=== PATIENT | female | born 1955 | race Caucasian/White ===

== ENCOUNTER 2022-05-30 09:28 | Outpatient (CLI) | payer MEDICARE, BC, SELFPAY ==
[2022-05-30 13:15] LABS: Chloride* 100 mmol/L (96-114); Potassium* 4.8 mmol/L (3.6-5.1); Sodium* 139 mmol/L (135-149)
[2022-05-30 13:17] LABS: Cholesterol* 297 mg/dL (90-199); Creatinine* 0.8 mg/dL (0.5-1.5); Estimated Glomerular Filt Rate 80 ml/min
[2022-05-30 13:18] LABS: Blood Urea Nitrogen* 20 mg/dL (7-30); Calcium* 10.2 mg/dL (8.4-10.6); Carbon Dioxide* 29 mmol/L (20-32); Glucose* 98 mg/dL (60-115); HDL Cholesterol* 63 mg/dL (>=50); LDL Cholesterol Calculated 203 mg/dL (<100); Triglycerides* 153 mg/dL (40-149)
[2022-05-30 13:35] LABS: Vitamin D 25 Hydroxy* 32 ng/mL (30-80)
== END 2022-05-30 09:29 | disposition home or self-care (01) ==
PROVIDERS: PCP Internal Medicine; Visit Provider Internal Medicine
DX: E78.5 Hyperlipidemia, unspecified (principal); E03.9 Hypothyroidism, unspecified; D47.3 Essential (hemorrhagic) thrombocythemia; I10 Essential (primary) hypertension; M81.0 Age-related osteoporosis without current pathological fracture; E66.9 Obesity, unspecified
CPT/HCPCS: 80048; 80061; 82306; 84443

== ENCOUNTER 2022-07-06 12:42 | Outpatient (CLI) | payer MEDICARE, BC, SELFPAY ==
--- NOTE | 2022-07-06 14:00 | CRLHL7_ITS ---
For Patients: As a result of the Century Cures Act, medical imaging exams and procedure reports are released immediately into your electronic medical record. You may view this report before your referring provider. If you have questions, please contact your health care provider. DXA BONE MINERAL DENSITY STUDY Current height (in): 62.0. Weight (lb): 180.0. Menopause age: 46. Ethnicity: White. Reason for exam: Osteoporosis. 1. Have you had a previous hip or vertebral fracture? No. 2. Have you had any fractures during your adult life which did not result from significant trauma (e.g., auto accident)? No. 3. Did either of your parents have a hip fracture? No. 4. Do you smoke? No. 5. Have you ever taken Glucocorticoids? No. 6. Do you have rheumatoid arthritis? No. 7. Do you have secondary osteoporosis? No. 8. Do you drink 3 or more alcoholic drinks per day? No. 9. Are you being treated for osteoporosis? Yes. 10. Have you ever taken any of the following medications: Actonel, Evista, Fosamax, Miacalcin, Reclast, Boniva, Forteo, HRT (i.e. estrogen/hormone therapy), Protelos, Prolia, Vitamin D, Calcium, other ??? please specify. ANSWER: Yes, Reclast, vitamin D, calcium. 11. Do you have any of the following medical conditions: Anorexia or bulimia, asthma or emphysema, end stage renal disease, hyperparathyroidism, any seizure disorders, cancer, inflammatory bowel diseases, hysterectomy, other ??? please specify. ANSWER: Yes, asthma or emphysema, hyperparathyroidism, hypertension, any seizure disorder, hysterectomy. 12. What was your maximum height (inches)? 62. 13. Do you perform weight bearing exercise regularly? No. 14. Do you regularly consume dairy products? Yes. 15. Do you drink caffeinated beverages? No. If female: 16. At what age did your period start? 11. 17. Are you premenopausal? No. 18. How many full term pregnancies have you had? 3. 19. Have you ever missed your period for more than 6 months in a row (not including or menopause)? No. TECHNIQUE: Bone mineral density study was performed using the Formisimo. FINDINGS: The results of the study expressed as bone mineral density (BMD) are as follows: Lumbar spine L1 to L4: BMD: 0.860 g/cm2. T-score: -1.7. Z-score: 0.3. Neck Left: BMD: 0.653 g/cm2. T-score: -1.8. Z-score: -0.0. Right: BMD: 0.670 g/cm2. T-score: -1.6. Z-score: 0.1. Total Left: BMD: 0.837 g/cm2. T-score: -0.9. Z-score: 0.6. Right: BMD: 0.857 g/cm2. T-score: -0.7. Z-score: 0.7. IMPRESSION: Osteopenia. *Comparison exams done prior to 02/2020 were performed on different unit, Virtustream. COMPARISON: Compared with scan of 02/01/2017, the bone mineral density has increased by 2.1 percent at the spine and increased by 9.0 percent at the hip. Wilman Salvador M.D. Diagnostic Radiologist [email or web address] Transcribed: 8:58 a.m. DW/Dictated by: Wilman Salvador MD @ 07/07/2022 7:57:00 AM (Electronically Signed)
== END 2022-07-06 12:43 | disposition home or self-care (01) ==
LOC: RAD 12:43
PROVIDERS: PCP Internal Medicine; Visit Provider Internal Medicine
DX: M81.0 Age-related osteoporosis without current pathological fracture (principal); M85.89 Other specified disorders of bone density and structure, multiple sites; R01.1 Cardiac murmur, unspecified
CPT/HCPCS: 77080; 93306

== ENCOUNTER 2022-11-13 10:19 | Outpatient (CLI) | payer MEDICARE, BC, SELFPAY | END 2022-11-13 10:20 | disposition home or self-care (01) | LOC: NFLDREF 11-17 10:04 | PROVIDERS: PCP Internal Medicine; Referring Provider Internal Medicine; Visit Provider Internal Medicine | DX: E78.5 Hyperlipidemia, unspecified (principal) | CPT/HCPCS: 80061 ==

== ENCOUNTER 2022-12-07 15:36 | Outpatient (CLI) | payer MEDICARE, BC, SELFPAY | END 2022-12-07 15:37 | disposition home or self-care (01) | LOC: NFLDREF 15:37 | PROVIDERS: PCP Internal Medicine; Visit Provider Internal Medicine | DX: E03.9 Hypothyroidism, unspecified (principal); E78.5 Hyperlipidemia, unspecified | CPT/HCPCS: 84443 ==

== ENCOUNTER 2023-06-05 09:25 | Outpatient (CLI) | payer MEDICARE, BC, SELFPAY ==
--- OUTSIDE RECORDS SUMMARY | 2023-06-09 11:33 | XMS_ITS | Continuity of Care Document ---
Author Name Unknown Organization [facility] Address [address] [place] [address] Phone Care Team Providers Care Manager Administrative Name Role Phone Milena Potts MD Unavailable Unavailable Results Test Name Date and Time Measure Units Reference Range Abnormal Flag Status Commen ts Panel Description: CPK Final CK 11:26:00 63 U/L 26-140 Final Advance Directives Directive Yes / No Effective Date File Name No Information Encounters Encounter Description Practice Location Reason(s) For Visit Diagnoses Date Provider Providers Copied on Encounter [facility], [address], [place], [address], [place] tel:[phone] No Information 3 Katlyn Abbott. [facility] [address], [place], [address], [place]. tel:[phone] Family History Family Member Type Diagnosis Age At Onset No Information Payers Payer name Insurance type Covered republican ID Authoriza tion(s) No Information Social History Type Description Quantity Date Captured Comments Sex Female Smoking Status No Information Chief Complaint And Reason For Visit No Information Reason For Referral Reason For Referral No Information History Of Present Illness Encounter Date Complaint History Of Prese nt Illness No Information Functional Status Date Functional Assessmen t No Information Instructions Date Instruction Additional Infor mation No Information Assessments Type Assessment Date No Information Patient Care Teams Name Effective Dates (start - stop) Status Members No Information
== END 2023-06-05 09:26 | disposition home or self-care (01) ==
LOC: NFLDREF 06-09 11:32
PROVIDERS: PCP Internal Medicine; Referring Provider Internal Medicine; Visit Provider Internal Medicine
DX: I10 Essential (primary) hypertension (principal); E03.9 Hypothyroidism, unspecified; E78.5 Hyperlipidemia, unspecified; M81.0 Age-related osteoporosis without current pathological fracture
CPT/HCPCS: 80048; 80061; 82306; 84443

== ENCOUNTER 2023-07-24 10:15 | Outpatient (CLI) | payer MEDICARE, BC, SELFPAY ==
--- OUTSIDE RECORDS SUMMARY | 2023-07-24 10:18 | XMS_ITS | Continuity of Care Document ---
Author Name Unknown Organization [facility] Address [address] [place] [address] Phone Care Team Providers Care Dust Operator Name Role Phone Milena Potts MD Unavailable [...] [facility], [address], [place], [address], [place] tel:[phone] No Information 3 Katlyn Abbott. [facility] [address], [place], [address], [place]. tel:[phone] Family History Family Member Type Diagnosis Age [...]
--- NOTE | 2023-07-24 11:11 | W.ANESCHARGE ---
Anesthesia Charges Start Date/Time Anesthesia Start Date: 07/24/23 Anesthesia Start Time: 10:45 Stop Date/Time Anesthesia Stop Date: 07/24/23 Anesthesia Stop Time: 11:09
--- NOTE | 2023-07-24 11:39 | W.ANESCHARGE ---
Anesthesia Charges Start Date/Time Anesthesia Start Date: 07/24/23 Anesthesia Start Time: 10:45 Stop Date/Time Anesthesia Stop Date: 07/24/23 Anesthesia Stop Time: 11:09
== END 2023-07-24 10:16 | disposition home or self-care (01) ==
LOC: OP CLINIC 10:16
PROVIDERS: PCP Internal Medicine; Visit Provider Surgery
DX: Z12.11 Encounter for screening for malignant neoplasm of colon (principal); Z83.719 Family history of colon polyps, unspecified
CPT/HCPCS: 00811; 00812; 45378; J2704

== ENCOUNTER 2024-07-17 08:52 | Outpatient (CLI) | payer MEDICARE, BC, SELFPAY ==
--- OUTSIDE RECORDS SUMMARY | 2024-07-17 14:39 | XMS_ITS | Continuity of Care Document ---
Author Organization [facility] Address [address] [place] [address] Phone Care Team Providers Care Editing Intern Name Role Phone Milena Potts MD Unavailable [...] [facility], [address], [place], [address], [place] tel:[phone] No Information 3 Katlyn Abbott. [facility] [address], [place], [address], [place]. tel:[phone] Family History Family Member Type Diagnosis Age At Onset No Information Payers Payer name Insurance type Covered democrat ID Authoriza tion(s) No Information Social History [...]
--- OUTSIDE RECORDS SUMMARY | 2024-07-17 14:39 | XMS_ITS | Clinical Summary ---
Author Organization [facility] Address [address] [place] [address] Care Team Providers Care Three Knife Trimmer Name Role Phone Unavailable Primary Care Provider Unavailabl e Source Comments PLEASE NOTE, if this patient is a minor, it may be UNLAWFUL to discuss sensitive information that is contained in these records (such as FAMILY PLANNING, MENTAL HEALTH or SUBSTANCE ABUSE) with the minor patient's parent or other person without the patient's specific authorization.[facility] Social History Tobacco Use Types Packs/Day Years Used Date Smoking Tobacco: Never Assessed Social Connections Answer Date Recorded Social Connections and Isolation 0 12/18/2020 Financial Resource Strain Answer Date R ecorded Financial Resource Strain 0 2020 Stress Answer Date Recorded Stress 0 12/18/2020 Physical Activity Answer Date Recorded Physical Activity 0 12/18/2020 Food Insecurity Answer Date Recorded Food 0 12/18/2020 Transportation Needs Answer Date Record ed Transportation 0 12/18/2020 Housing Stability Answer Date Recorded Housing 0 12/18/2020 Safety and Environment Answer Date Luis Eduardo rded Safety 0 12/18/2020 Utilities Answer Date Recorded Utilities 0 12/18/2020 Employment Answer Date Recorded Employment 0 12/18/2020 Sex and Gender Information Value Date Recorded Sex Assigned at Not on file Gender Identity Female 04/15/2021 1:13 PM PDT Sexual Orientation Straight 04/15/2021 1: 13 PM PDT Plan of Treatment Not on file Insurance Payer Benefit Plan / Group Subscriber ID Effective Dates Phone Address Type MEDICARE - [place] [id number] 2018-Pres e nt [address] [place] [address] Medicare [place] [id number] 2018-Prese nt [address] [address] [place] [address] Indemnity
--- OUTSIDE RECORDS SUMMARY | 2024-07-17 14:39 | XMS_ITS | Clinical Summary ---
Author Organization [email or web address] Address [place], [place] [address] Care Team Providers Care Silverlight Developer Name Role Phone iMa Lugo MD Primary Care Provider [phone] Allergies Active Allergy Reactions Criticality Noted Date Comments Cats (Fur, Dander, Saliva) Shortness Of Breath 10/30/2008 Celery (Apium Graveolens) (Umbelliferae) Anaphylaxis High 10/30/2008 uncooked Ragweed Runny Nose 10/30/2008 Medications Medication Sig Dispensed Refills Start Date End Date Status COZAAR 100 MG TAB take 1 tablet (100 mg) by oral route once daily 0 05/18/2009 Active aspirin 81 mg tablet Take 1 tablet by mouth once daily with a meal. 0 10/11/2009 Active lisinopril (PRINIVIL; ZESTRIL) 20 mg tablet Take 1 tablet by mouth once daily. 0 01/18/2010 Active cholecalciferol (VITAMIN D) 1,000 unit capsule Take 3 capsules by mouth once daily. prn 11/08/2010 Active clonazePAM (KLONOPIN) 0.5 mg tablet Take by mouth. Po TID to QID prn 105 tablet 1 02/08/2011 Active gabapentin (NEURONTIN) 300 mg capsule Take 1 capsule by mouth 3 times daily. 0 06/27/2011 Active omega-3 fatty acids-vitamin E (FISH OIL) 1,000 mg cap Take by mouth once daily if needed for Other (Specify). 0 09/07/2012 Active albuterol (PROVENTIL; VENTOLIN) 90 mcg/actuation inhalerIndications: Acute bronchospasm Inhale 2 Puffs by mouth every 4 hours if needed for Wheezing. 1 Inhaler 1 09/07/2012 Active DULoxetine (CYMBALTA) 60 mg capsule, delayed releaseIndications: Hypercalcemia 120 mg once daily 15 capsule 0 05/23/2013 Active levothyroxine (SYNTHROID) 100 mcg tablet Take 1 tablet by mouth once daily. NEEDS APPOINTMENT CRIS 30 tablet 0 08/25/2014 Active Active Problems Problem Noted Date Diagnosed Date Osteoporosis 07/18/2013 Overview (07/18/2013): 05/2013 dexascan with lumbar spine density of -2.5. Rectal bleeding 06/30/2013 Overview (06/30/2013): Colonoscopy 06/2013 internal hemorrhoids repeat in 10 years DESTINY AHI-80 01/19/2010 02/04/2010 Unspecified hypothyroidism 05/18/2009 Overview (10/19/2009): Osteopenia 05/18/2009 Overview (02/20/2012): 12/12/10 reclast # 1 Other malaise and fatigue 01/13/2009 Multi-lobular enlargend left thyroid 11/12/2008 Fibromyalgia 10/01/2008 Hypercalcemia 10/01/2008 Overview (05/23/2013): 08/12 single parathyroid removed and partial thyroid lobectomy At that time, she had a right thyroid lobectomy and a left inferior parathyroidectomy. 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 Subsequently in October 30, 2008, because she had persistent hypercalcemia and elevated PTH and also at that time she was re-imaged, had a sestamibi scan that showed increased uptake between the inferior left thyroid lobe and the trachea; however, preoperative ultrasound with biopsies of this area were negative. However, she was taken back to the operating room for another exploration on that day where a left thyroid lobectomy and neck exploration was performed. However, no parathyroid adenoma was encountered and the pathology on her thyroid was benign. 03/20/11 right superior parathyroidectomy of a 188 mg gland, reimplantation of the right inferior parathyroid gland PTH =52 the am of surgery and 18 eight days later Generalized anxiety disorder 08/24/2008 Dysthymic disorder 08/24/2008 Sleep Apnea AHI 120 05/200507/18/2007 Impaired fasting glucose 06/21/2007 Thyrotoxicosis without menti on of goiter or other cause, without mention of thyrotoxic crisis or storm 05/24/2007 Other and unspecified hyperlipidemia 05/24/2007 Thyrotoxicosis without menti on of goiter or other cause, without mention of thyrotoxic crisis or storm 05/24/2007 Esophageal reflux Unspecified asthma(493.90) Unspecified essential hypertension Resolved Problems Problem Noted Date Diagnosed Date Resolved Date Obstructive sleep apnea (adult) (pediatric) 07/18/2007 Immunizations Name Administration Dates Next Due Influenza, IIV3 (Age >=3 years) 05/11/2008 Pneumococcal Poly,23-Valent (Pneumovax) 03/21/20 11 Tdap 05/24/2007 Social History Tobacco Use Types Packs/Day Years Used Date Smoking Tobacco: Never Smokeless Tobacco: Never Alcohol Use Standard Drinks/Week Comments No 0 (1 standard drink = 0.6 oz pur e alcohol) Sex and Gender Information Value Date Recorded Sex Assigned at Not on file Gender Identity Not on file Sexual Orientation Not on file Obstetrics History Last Filed Vital Signs Vital Sign Reading Time Taken Comments Blood Pressure 120/78 05/23/2013 3:40 PM CDT Pulse 80 05/23/2013 3:40 PM CDT Temperature 37.3 ??C (99.2 ??F) 09/07/2012 9:39 AM CS T Respiratory Rate 16 03/28/2011 2:20 PM CDT Oxygen Saturation 98% 09/07/2012 9:39 AM PERSONNEL ASSOCIATE Inhaled Oxygen Concentration - - Weight 89.4 kg (197 lb) 05/23/2013 3:40 PM CDT Height 156.2 cm (5' 1.5) 03/20/2011 8:04 AM CDT Body Mass Index 36.62 03/20/2011 8:04 AM CDT Plan of Treatment Health Maintenance Due Date Last Done Comments Depression screening for age 12+ 1965 BMI (ht and wt on same day) for age 18+ 1971 Hepatitis C screening for age 18-79 1971 Zoster (shingles) series for age 50+ (1 of 2) 2003 Mammogram for age 45-75 03/10/2010 03/10/2009, 07/09 Lipids for age 45-75 06/04/2012 06/04/2007 Tetanus booster 05/24/2017 05/24/2007 DEXA/DXA scan for age 65+ 2018 05/15/2013, 12/2008 Pneumococcal series for age 65+ (2 of 2 - PCV) 2018 03/21/2011 Colonoscopy through age 75 06/30/2023 06/30/2013, COVID-19 vaccine series ( season) 2024 04/18/2022, 06/04/2021, 11/22/2020 Influenza for age 65+ 05/11/2024 05/11/2008 Tdap Completed 05/24/2007 Procedures Procedure Name Priority Date/Time Associated Diagnosis Comments COLONOSCOPY SCREENING Routine 06/30/2013 Special screening for malignant neoplasms, colon SCAN-BONE DENSITOMETRY DEXA 05/15/2013 12:00 AM CDT SCAN-MAMMOGRAPHY REPORT 07/09/2007 12:00 AM CDT LIPID PANEL Routine 06/04/2007 7:07 AM CDT Hyperlipidemia from Last 3 Months or Most Recently Relevant to Health Maintenance Results * COLONOSCOPY SCREENING (06/30/2013) Sami Lopez MD GI PROCEDURE ORD * SCAN-BONE DENSITOMETRY DEXA (05/15/2013 12:00 AM CDT) Anatomical Region Laterality Modality Other Narrative 07/22/2013 4:24 PM PERSONNEL ASSOCIATE Procedure Note Scanner - 05/15/2013 12:00 AM CDT Scanner OTHER * SCAN-MAMMOGRAPHY REPORT (07/09/2007 12:00 AM CDT) Anatomical Region Laterality Modality Other Scanner OTHER * (ABNORMAL) LIPID PANEL (06/04/2007 7:07 AM CDT) CHOLESTEROL,TOTAL 212(H) 110 - 199 mg/dL [facility] TRIGLYCERIDES 153(H) <150 mg/dL [facility] HDL CHOLESTEROL 54 >40 mg/dL [facility] CHOL/HDL RATIO 3.93 <4.51 [facility] LDL CHOLESTEROL 127 <131 mg/dL [facility] PATIENT STATUS Fasting [facility] Blood specimen (specimen) BLOOD SPECIMEN / Unknown 06/04/2007 7:07 AM CDT 06/04/2007 7:04 AM CDT Bud Keller MD CHEMISTRY [facility] [address] [place] [address] from Last 3 Months or Most Recently Relevant to Health Maintenance Advance Directives * Full Code (Latest Code Status on File) Date Activated Date Inactivated Comments 03/20/2011 12:22 PM 03/21/2011 3:33 PM * Full Code Date Activated Date Inactivated Comments 03/20/2011 7:46 AM 03/20/2011 12:22 PM * Full Code Date Activated Date Inactivated Comments 10/30/2008 10:42 PM 10/31/2008 8:31 PM * Full Code Date Activated Date Inactivated Comments 10/30/2008 10:25 AM 10/30/2008 10:42 PM Care Teams Silverlight Developer Relationship Specialty Start Date End Date Mia Lugo MD PCP - General 07/31/08
== END 2024-07-17 08:53 | disposition home or self-care (01) ==
LOC: NFLDREF 14:37
PROVIDERS: PCP Internal Medicine; Referring Provider Internal Medicine; Visit Provider Internal Medicine
DX: E78.5 Hyperlipidemia, unspecified (principal); I10 Essential (primary) hypertension; M85.80 Other specified disorders of bone density and structure, unspecified site; E03.9 Hypothyroidism, unspecified; L65.9 Nonscarring hair loss, unspecified; Z13.0 Encounter for screening for diseases of the blood and blood-forming organs and certain disorders involving the immune mechanism
CPT/HCPCS: 80048; 80061; 82306; 82728; 83540; 83550; 84443

== ENCOUNTER 2024-09-29 18:58 | Emergency (ER) | payer MEDICARE, BC, SELFPAY ==
[2024-09-29] VITALS (25 sets, daily range): BP systolic 148–179; BP diastolic 81–97; PULSE 64–78; RESP 16; TEMP 36.6; O2SAT 92–99; BMI 34.0
--- NOTE | 2024-09-29 20:19 | ED.CHESTPAIN ---
HPI - Chest Pain General Date Seen: 09/29/24 Chief Complaint: Chest Pain Stated Complaint: Difficulty breathing, jaw pain Time Seen by Provider: 09/29/24 19:33 Source: patient Mode of arrival: ambulatory Limitations: no limitations History of Present Illness HPI narrative: Patient is a 68-year-old female with a history of hypertension presenting to the emergency department for chest pain. She states around 17:00 she started noticing some chest discomfort. States he was making her feel some mild shortness of breath and then started radiating up to her jaw. States she has had pain like this before and was related to indigestion she took baking soda and water and had some mild relief but did not relieve the completely. She spoke to the triage line and was informed to come to the emergency department. The state that this time is symptoms have improved significantly. She does have a brother who has had multiple heart attacks but she person does not have any heart disease. Denies lightheadedness, dizziness, fevers, chills, abdominal pain, nausea/vomiting, diarrhea, constipation, headache, vision changes. States previously she came to the emergency department for similar symptoms and was given some oral lidocaine and that completely resolved the symptoms. She states at that time she had a crushing sensation in her chest. No other concerns noted. No history of blood clots. Related Data Home Medications ?Medication ?Instructions ?Recorded ?Confirmed clonazepam 0.5 mg tablet 0.5 mg PO TID 05/30/22 07/24/24 gabapentin 300 mg capsule 300 mg PO TID 05/30/22 07/24/24 magnesium 250 mg tablet 250 mg PO QDAY 05/30/22 07/24/24 dorzolamide 22.3 mg-timolol 6.8 ophthalmic (eye) 07/03/23 07/24/24 mg/mL eye drops duloxetine 60 mg capsule,delayed 60 mg PO QDAY 07/03/23 07/24/24 release (Cymbalta) latanoprostene bunod 0.024 % eye 1 drp ophthalmic (eye) QPM 05/22/24 07/24/24 drops (Vyzulta) duloxetine 20 mg capsule,delayed 20 mg PO DAILY 07/24/24 07/24/24 release Previous Rx's ?Medication ?Instructions ?Recorded albuterol sulfate 90 mcg/actuation 2 puff inhalation Q4-6H PRN 01/04/24 aerosol inhaler shortness of breath or wheezing #8.5 grams levothyroxine 88 mcg tablet 88 mcg PO DAILY #90 tabs 07/24/24 oxycodone-acetaminophen 5 mg-325 1 tab PO Q8H PRN pain #40 tabs 07/24/24 mg tablet (Percocet) losartan 50 mg tablet 50 mg PO QDAY #90 tabs 09/04/24 Allergies Allergy/AdvReac Type Severity Reaction Status Date / Time celery Allergy Mild Verified 07/24/24 09:38 cat dander Allergy Verified 07/24/24 09:38 Review of Systems Status of ROS Reports: 10 or more systems reviewed and unremarkable except as noted in History and below [facility] Medical History History of stress fracture (05/14/09) ?Z87.312 - Personal history of (healed) stress fracture (ICD-10) History of seizure (09/20/09) ?Z87.898 - Personal history of other specified conditions (ICD-10) History of primary hyperparathyroidism (09/20/09) ?Z86.39 - Personal history of other endocrine, nutritional and metabolic disease (ICD-10) Surgical History History of cataract surgery ?Z98.49 - Cataract extraction status, unspecified eye (ICD-10) History of lobectomy of thyroid ?Z90.09 - Acquired absence of other part of head and neck (ICD-10) History of renal calculi (09/20/09) ?Z87.442 - Personal history of urinary calculi (ICD-10) History of nasal septoplasty ?Z98.890 - Other specified postprocedural states (ICD-10) History of hysterectomy (09/20/09) ?Z90.710 - Acquired absence of both cervix and uterus (ICD-10) History of hemorrhoidectomy (08/2017) ?Z98.890 - Other specified postprocedural states (ICD-10) History of dilation and curettage (09/20/09) ?Z98.890 - Other specified postprocedural states (ICD-10) Social History What is your current living situation?: I presently have a place to live Problems where you live: no known problems In the past 12 months, utilities in danger of being shut off: no In past 12 months, lack of transportation kept you from medical appts, meetings, work, or getting things needed for daily living: no In the past 12 mos, have been you worried that your food would run out before you had money to buy more?: never true In the past 12 mos, the food you bought just didn't last and you didn't have money to buy more?: never true Smoking Status: Never smoker Do you use any of these nicotine containing products: None Non-prescribed substance use: denies use How often does anyone, including family, friends and others, physically hurt you: never How often does anyone, including family, friends and others, insult or talk down to you: never How often does anyone, including family, friends and others, threaten you with harm: never How often does anyone, including family, friends and others, scream or curse at you: never service: No Exam Narrative Exam Narrative: Const: Well-nourished, Well-developed, in mild distress Eyes: PERRL, no conjunctival injection, and symmetrical lids HENT: Atraumatic external nose and ears. Moist mucous membranes. Neck: Symmetric, trachea midline, No thyromegaly. CVS: RRR, No murmurs or gallops. Peripheral pulses 2+ and equal in all extremities RESP: Unlabored respiratory effort. Clear to auscultation bilaterally. GI: Nontender/Nondistended, No rebound or guarding. MSK:Extremities w/o deformity, Normal Active ROM Skin: Warm, Dry. No rashes or lesions. Neuro: Normal Muscle tone, No focal neurological deficits. Psych: Awake, Alert, & Oriented x3. Appropriate mood and affect. Const Vital Signs, click to edit/add: Vital Signs - 24 hr 09/29/24 19:10 09/29/24 19:31 09/29/24 19:32 Temperature 97.9 F Pulse Rate 74 74 Pulse Rate [Pulse Oximeter] 78 Respiratory Rate 16 Blood Pressure 168/94 H Blood Pressure [Right Upper Arm] 167/87 H Pulse Oximetry 98 94 96 Oxygen Delivery Method Room Air 09/29/24 19:45 09/29/24 19:47 09/29/24 20:00 Temperature Pulse Rate 71 72 70 Pulse Rate [Pulse Oximeter] Respiratory Rate Blood Pressure 148/92 H Blood Pressure [Right Upper Arm] Pulse Oximetry 94 92 93 Oxygen Delivery Method 09/29/24 20:02 09/29/24 20:15 09/29/24 20:30 Temperature Pulse Rate 72 69 71 Pulse Rate [Pulse Oximeter] Respiratory Rate Blood Pressure 151/81 H Blood Pressure [Right Upper Arm] Pulse Oximetry 92 95 95 Oxygen Delivery Method 09/29/24 20:32 09/29/24 20:45 09/29/24 21:09 Temperature Pulse Rate 71 69 64 Pulse Rate [Pulse Oximeter] Respiratory Rate Blood Pressure 158/92 H Blood Pressure [Right Upper Arm] Pulse Oximetry 94 95 99 Oxygen Delivery Method 09/29/24 21:15 09/29/24 21:19 09/29/24 21:30 Temperature Pulse Rate 64 64 65 Pulse Rate [Pulse Oximeter] Respiratory Rate Blood Pressure 178/97 H Blood Pressure [Right Upper Arm] Pulse Oximetry 98 97 98 Oxygen Delivery Method 09/29/24 21:32 09/29/24 21:45 09/29/24 21:47 Temperature Pulse Rate 66 71 64 Pulse Rate [Pulse Oximeter] Respiratory Rate Blood Pressure 170/88 H 164/95 H Blood Pressure [Right Upper Arm] Pulse Oximetry 98 97 96 Oxygen Delivery Method Course Vital Signs Vital signs: Initial Vital Signs Temperature 97.9 F 09/29/24 19:10 Temperature Source Temporal Artery Scan 09/29/24 19:10 Pulse Rate 78 09/29/24 19:10 Pulse Rhythm Regular 09/29/24 19:10 Respiratory Rate 16 09/29/24 19:10 Blood Pressure 167/87 H 09/29/24 19:10 Blood Pressure Mean 113 H 09/29/24 19:10 Blood Pressure Position Sitting 09/29/24 19:10 Pulse Oximetry 98 09/29/24 19:10 Oxygen Delivery Method Room Air 09/29/24 19:10 Vital Signs Temperature 97.9 F 09/29/24 19:10 Pulse Rate 78 09/29/24 19:10 Respiratory Rate 16 09/29/24 19:10 Blood Pressure 167/87 H 09/29/24 19:10 Pulse Oximetry 98 09/29/24 19:10 Oxygen Delivery Method Room Air 09/29/24 19:10 Temperature 97.9 F 09/29/24 19:10 Pulse Rate 64 09/29/24 21:47 Respiratory Rate 16 09/29/24 19:10 Blood Pressure 164/95 H 09/29/24 21:47 Pulse Oximetry 96 09/29/24 21:47 Oxygen Delivery Method Room Air 09/29/24 19:10 Medications Administered Medications: Discontinued Medications Generic Name Dose Route Start Last Admin Trade Name Bhavin PRN Reason Stop Dose Admin Lidocaine/Aluminum/Magnesium/Simeth 30 ml 09/29/24 19:54 09/29/24 21:06 Gi Cocktail (Visc Lido/Antacid) 30 Ml PO 09/29/24 19:55 30 ml ONCE ONE Administration MDM - Chest Pain MDM Narrative Medical decision making narrative: Patient is a 68-year-old female presenting to the emergency department for chest pain. The differential diagnosis of chest pain is broad and includes common etiologies such as musculoskeletal strain, GERD, pneumonia, etc. More serious etiologies considered include PE, coronary artery disease, pneumothorax, aortic dissection, aortic aneurysm. Will do a D-dimer to check for signs of PE. Will the chest x-ray to evaluate for signs of pneumonia or pneumothorax.. Will do an EKG and troponin to look for signs of ACS. This could be related to GERD so I will give a GI cocktail. She is otherwise stable and aortic dissection and aortic aneurysm seem unlikely. Also ordered a CBC, BMP, COVID/flu/RSV. Lab work returned showing no concerning abnormalities. EKG reviewed by myself shows no concerning findings. Troponin shows no concerning findings. Will repeat the troponin. Chest x-ray reviewed by myself the radiologist shows no acute concerning abnormalities. Viral swabs are negative. Repeat troponin also came back negative. D-dimer within normal limits and PE can be rule out. Symptoms improved with a GI cocktail but did start to come back again after few hours. At this point with improvement a GI cocktail and otherwise normal workup I do believe this is likely related to GERD. This is consistent with her story and previous experience with the symptoms. I did offer to start her on a PPI but she would rather just take Tums at this time. I did explain to her that continuous reflux can cause Wilkes's esophagus. She states she understands. Will discharge her at this time. Lab Data Labs: Lab Results 09/29/24 09/29/24 09/29/24 Range/Units 20:15 20:21 22:23 WBC 6.23 (4.50-11.00) K/uL RBC 4.39 (4.00-5.20) m/uL Hgb 13.5 (12.0-16.0) gm/dL Hct 39.4 (33.0-51.0) % MCV 90 (80-100) fL MCH 31 (26-34) pg MCHC 34 (32-36) gm/dL RDW Coeff of Asiya 11.8 (11.5-15.5) % Plt Count 227 (140-440) K/uL Neut % (Auto) 49.3 (42.0-72.0) % Lymph % (Auto) 35.2 (20-44) % [place] % (Auto) 12.0 H (0.0-11.0) % Eos % (Auto) 2.7 (0.0-7.0) % Baso % (Auto) 0.6 (0.0-3.0) % Neut # (Auto) 3.07 (1.7-7.0) K/uL Lymph # (Auto) 2.19 (0.90-2.90) K/uL [place] # (Auto) 0.70 (0.00-0.90) K/UL Eos # (Auto) 0.17 (0.00-0.50) K/uL Baso # (Auto) 0.04 (0.00-0.30) K/uL Abs Immat Gran (auto) 0.01 (0.00-0.30) K/uL Imm/Tot Granulo (auto) 0.2 % D-Dimer Quant (PE/DVT) 0.24 (0.00-0.50) ug/ml Sodium 137 (135-149) mmol/L Potassium 4.0 (3.6-5.1) mmol/L Chloride 101 (96-114) mmol/L Carbon Dioxide 32 (20-32) mmol/L Anion Gap 4 L (7-15) mEq/L BUN 19 (7-30) mg/dL Creatinine 0.8 (0.5-1.5) mg/dL Estimated Creat Clear 39.50 Estimated GFR 79 ml/min Glucose 108 (60-115) mg/dL Calcium 9.7 (8.4-10.6) mg/dL Troponin I < 0.01 L (0.01-0.04) ng/mL SARS-CoV-2 (PCR) Negative SARS-CoV-2 (Negative) Influenza Type A (PCR) Negative PCR FLU A (Negative) Influenza Type B (PCR) Negative PCR FLU B (Negative) RSV (PCR) Negative PCR RSV (Negative) POC Troponin I 0.00 L 0.00 L (0.01-0.04) ng/ml Imaging Data Chest x-ray: Attestation: I have reviewed the pertinent imaging results. Radiologist's impression: 1. No acute cardiopulmonary disease is seen. Dictated by Jonas Wall MD @ 09/29/2024 9:01:52 PM ECG Data Attestation: I personally reviewed and interpreted this ECG as follows: Prior ECG tracings: not available for review Interpretation: Normal sinus rhythm rate 76 beats per minute, normal intervals, normal axis, no ST or T-wave abnormalities. Discharge Plan Discharge Clinical Impression: Chest pain due to GERD Patient Disposition: Home, Self-Care Condition: Stable Instructions: GERD (Gastroesophageal Reflux Disease) (ED) Additional Instructions: I believe your symptoms are related to GERD. I Do recommend follow-up with your primary care provider as prolonged gastric reflux can cause issues with your esophagus. You can use Tums if that is helping with your symptoms. Return to emergency department for new or worsening symptoms. Prescriptions: No Action gabapentin 300 mg capsule 300 mg PO TID clonazepam 0.5 mg tablet 0.5 mg PO TID magnesium 250 mg tablet 250 mg PO QDAY duloxetine [Cymbalta] 60 mg capsule,delayed release(DR/EC) 60 mg PO QDAY dorzolamide-timolol 22.3-6.8 mg/mL drops ophthalmic (eye) albuterol sulfate 90 mcg/actuation HFA aerosol inhaler 2 puff inhalation Q4-6H PRN (Reason: shortness of breath or wheezing) Qty: 8.5 1RF Vyzulta 0.024 % drops 1 drp ophthalmic (eye) QPM duloxetine 20 mg capsule,delayed release(DR/EC) 20 mg PO DAILY oxycodone-acetaminophen [Percocet] 5-325 mg tablet 1 tab PO Q8H PRN (Reason: pain) Qty: 40 0RF levothyroxine 88 mcg tablet 88 mcg PO DAILY Qty: 90 3RF losartan 50 mg tablet 50 mg PO QDAY Qty: 90 1RF Follow Up/Referrals: Mia Lugo MD [Primary Care Provider] - Stand Alone Forms: [employer] Info Instructions
--- NOTE | 2024-09-29 20:23 | CRLHL7_ITS ---
For Patients: As a result of the Cures Act, medical imaging exams and procedure reports are released immediately into your electronic medical record. You may view this report before your referring provider. If you have questions, please contact your health care provider. INDICATION: Chest pain radiating into the jaw TECHNIQUE: Chest radiograph 2 views COMPARISON: None FINDINGS: Mediastinum: The mediastinum is normal in appearance. The heart silhouette is normal in size and morphology. Lung: Both lungs are unremarkable in appearance. No sign of pleural effusion seen. No pneumothorax is identified. Bone and Soft tissue: Mild dextroscoliosis of the midthoracic spine is noted. IMPRESSION: 1. No acute cardiopulmonary disease is seen. Dictated by Jonas Wall MD @ 09/29/2024 9:01:52 PM Dictated by: Jonas Wall MD @ 09/29/2024 21:01:59 (Electronically Signed)
[2024-09-29 20:26] LABS: Basophils Absolute Auto 0.04 K/uL (0.00-0.30); Basophils Percent Auto 0.6 % (0.0-3.0); Eosinophils Absolute Auto 0.17 K/uL (0.00-0.50); Eosinophils Percent Auto 2.7 % (0.0-7.0); Hematocrit 39.4 % (33.0-51.0); Hemoglobin* 13.5 gm/dL (12.0-16.0); Immature Granulocytes Abs Auto 0.01 K/uL (0.00-0.30); Immature Granulocytes Pct Auto 0.2 %; Lymphocytes Absolute Auto 2.19 K/uL (0.90-2.90); Lymphocytes Percent Auto 35.2 % (20-44); Mean Corpuscular HGB Conc 34 gm/dL (32-36); Mean Corpuscular Hemoglobin 31 pg (26-34); Mean Corpuscular Volume 90 fL (80-100); Neutrophils Absolute Auto 3.07 K/uL (1.7-7.0); Neutrophils Percent Auto 49.3 % (42.0-72.0); Platelet Count* 227 K/uL (140-440); RDW Coefficient of Variation % 11.8 % (11.5-15.5); Red Blood Count 4.39 m/uL (4.00-5.20); White Blood Count* 6.23 K/uL (4.50-11.00)
[2024-09-29 20:27] LABS: Slide Review Reflex No
[2024-09-29 21:05] LABS: Chloride* 101 mmol/L (96-114); Sodium* 137 mmol/L (135-149)
[2024-09-29 21:06] LABS: PCR FLU A Negative PCR FLU A (Negative); PCR FLU B Negative PCR FLU B (Negative); PCR RSV Negative PCR RSV (Negative); SARS PCR* Negative SARS-CoV-2 (Negative)
[2024-09-29] MEDS: GI COCKTAIL (VISC LIDO/ANTACID) 30 ML PO (21:06)
[2024-09-29 21:07] LABS: Creatinine* 0.8 mg/dL (0.5-1.5); Estimated Glomerular Filt Rate 79 ml/min
[2024-09-29 21:08] LABS: Anion Gap 4 mEq/L (7-15); Blood Urea Nitrogen* 19 mg/dL (7-30); Calcium* 9.7 mg/dL (8.4-10.6); Carbon Dioxide* 32 mmol/L (20-32); Glucose* 108 mg/dL (60-115)
[2024-09-29 21:20] LABS: Troponin I* < 0.01 ng/mL (0.01-0.04)
[2024-09-29 21:30] LABS: D Dimer Quantitative* 0.24 ug/ml (0.00-0.50)
--- OUTSIDE RECORDS SUMMARY | 2024-09-30 00:13 | XMS_ITS | Clinical Summary ---
Author Organization [facility] Address [address] [place] [address] Care Team Providers Care Radiographer Mammographer Name Role Phone Unavailable Primary Care Provider [...] Employment Answer Date Recorded Employment 0 12/18/2020 Comments Unknown Sex and Gender Information Value Date Recorded Sex Assigned at Not on file Legal Sex Female 8:54 AM PST Gender Identity Female 04/15/2021 1:13 PM PDT Sexual Orientation Straight 04/15/2021 1: 13 PM PDT Plan of Treatment Not on file Insurance [employer] - [place]
--- OUTSIDE RECORDS SUMMARY | 2024-09-30 00:13 | XMS_ITS | Continuity of Care Document ---
Author Name [facility] Address Unknown Organization Unknown Address Unknown Procedures FILTER APPLIED:Only known Procedures with Onset Date within the last 5 years Procedure Date Procedure Provider Additional Inform ation Status ANES LWR INTST SCR COLSC (09655) Completed ANES LWR INTST NDSC NOS (19808) Completed DIAGNOSTIC COLONOSCOPY (70358) Completed VITAMIN D 25 HYDROXY (33174) Completed LIPID PANEL (03450) Comp leted METABOLIC PANEL TOTAL CA (30729) Completed ASSAY THYROID STIM HORMONE (30570) Completed Encounters FILTER APPLIED:Only known Encounters with Admission Date within the last 5 years Encounter Location Admission Discharge Billing Code Consultant Elisabeth pedro Outpatient Priya Lugo Outpatient Gloria Zaman
--- OUTSIDE RECORDS SUMMARY | 2024-09-30 00:14 | XMS_ITS | Clinical Summary ---
Author Organization [facility] Address [place], [place] [address] Care Team Providers Care Offensive Coordinator Name Role Phone Mia Lugo MD Primary Care Provider [phone] Allergies Active Allergy Reactions Criticality Noted Date Comments Cats (Fur, Dander, Saliva) Shortness Of Breath 10/30/2008 Celery (Apium Graveolens) (Umbelliferae) Anaphylaxis High 10/30/2008 uncooked Ragweed Runny Nose 10/30/2008 Medications COZAAR 100 MG TAB take 1 tablet (100 mg) by oral route once daily 0 9 Active aspirin 81 mg tablet Take 1 tablet by mouth once daily with a meal. 0 0 Active lisinopril (PRINIVIL; ZESTRIL) 20 mg tablet Take 1 tablet by mouth once daily. 0 0 Active cholecalciferol (VITAMIN D) 1,000 unit capsule Take 3 capsules by mouth once daily. prn 1 Active clonazePAM (KLONOPIN) 0.5 mg tablet Take by mouth. Po TID to QID prn 105 tablet 1 1 Active gabapentin (NEURONTIN) 300 mg capsule Take 1 capsule by mouth 3 times daily. 0 1 Active omega-3 fatty acids-vitamin E (FISH OIL) 1,000 mg cap Take by mouth once daily if needed for Other (Specify). 0 2 Active albuterol (PROVENTIL; VENTOLIN) 90 mcg/actuation inhalerIndicatio ns:Acute bronchospasm Inhale 2 Puffs by mouth every 4 hours if needed for Wheezing. 1 Inhaler 1 2 Active DULoxetine (CYMBALTA) 60 mg capsule, delayed releaseIndicatio ns:Hypercalcemia 120 mg once daily 15 capsule 0 3 Active levothyroxine (SYNTHROID) 100 mcg tablet Take 1 tablet by mouth once daily. 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[employer] Gender Identity Not on file Sexual Orientation Not on file Obstetrics History Last Filed Vital Signs Vital Sign Reading Time Taken Comments Blood Pressure 120/78 05/23/2013 3:40 PM CDT Pulse 80 05/23/2013 3:40 PM CDT Temperature 37.3 C (99.2 F) 09/07/2012 9:39 AM [employer] Respiratory Rate 16 03/28/2011 2:20 PM CDT Oxygen Saturation 98% 09/07/2012 9:39 AM [employer] Inhaled Oxygen Concentration - - Weight 89.4 [...] Mammogram for age 45-75 03/10/2010 03/10/2009, 07/09 Pneumococcal series for age 50+ (2 of 2 - PCV) 03/21/2012 03/21/2011 Lipids for age 45-75 06/04/2012 06/04/2007 Tetanus booster 05/24/2017 05/24/2007 DEXA/DXA scan for age 65+ 2018 05/15/2013, 12/2008 Colonoscopy through age 75 06/30/2023 06/30/2013, COVID-19 vaccine series ( season) 2024 04/18/2022, 06/04/2021, 11/22/2020 Influenza for age 65+ 05/11/2024 05/11/2008 RSV vaccine for adults or pr egnancy (1 - 1-dose 75+ series) 2028 Tdap Completed 05/24/2007 Procedures Procedure Name Priority Date/Time Associated Diagnosis Comments COLONOSCOPY SCREENING Routine 06/30/2013 Special screening for malignant neoplasms, colon SCAN-BONE DENSITOMETRY DEXA 05/15/2013 12:00 AM CDT SCAN-MAMMOGRAPHY REPORT 07/09/2007 12:00 AM CDT LIPID PANEL Routine 06/04/2007 7:07 AM CDT Hyperlipidemia from Last 3 Months or Most Recently Relevant to Health Maintenance Results * COLONOSCOPY SCREENING (06/30/2013) us Sami Lopez MD GI PROCEDURE ORD Final Re sult * SCAN-BONE DENSITOMETRY DEXA (05/15/2013 12:00 AM CDT) Anatomical Region Laterality Modality Other Narrative 07/22/2013 4:24 PM [employer] Procedure Note Scanner - 05/15/2013 12:00 AM CDT us Scanner OTHER Final Result * SCAN-MAMMOGRAPHY REPORT (07/09/2007 12:00 AM CDT) Anatomical Region Laterality Modality Other us Scanner OTHER Final Result * (ABNORMAL) LIPID PANEL (06/04/2007 7:07 AM CDT) CHOLESTEROL,TOTAL 212(H) 110 - 199 mg/dL [facility] TRIGLYCERIDES 153(H) <150 mg/dL [facility] HDL CHOLESTEROL 54 >40 mg/dL [facility] CHOL/HDL RATIO 3.93 <4.51 [facility] LDL CHOLESTEROL 127 <131 mg/dL [facility] PATIENT STATUS Fasting [facility] Blood specimen (specimen) BLOOD SPECIMEN / Unknown 06/04/2007 7:07 AM CDT 06/04/2007 7:04 AM CDT us Bud Keller MD CHEMISTRY Final Result [facility] [address] [place], [place] [id number] from Last 3 Months or Most Recently Relevant to Health Maintenance Insurance [employer] PB ONLY Advance Directives * Full Code (Latest Code [...] 10:25 AM 10/30/2008 10:42 PM Care Teams Offensive Coordinator Relationship Specialty Start Date End Date Mia Lugo MD PCP - General 07/31/08
--- OUTSIDE RECORDS SUMMARY | 2024-09-30 00:20 | XMS_ITS | Continuity of Care Document ---
Author Name [facility] Address Unknown Organization Unknown Address Unknown Procedures FILTER APPLIED:Only known Procedures with Onset Date within the last 5 years Procedure Date Procedure Provider Additional Inform ation Status ANES LWR INTST SCR COLSC (42646) Completed ANES LWR INTST NDSC NOS (66521) Completed DIAGNOSTIC COLONOSCOPY (25494) Completed VITAMIN D 25 HYDROXY (24204) Completed LIPID PANEL (12876) Comp leted METABOLIC PANEL TOTAL CA (97037) Completed ASSAY THYROID STIM HORMONE (77239) Completed Encounters FILTER APPLIED:Only known Encounters with Admission Date within the last 5 years Encounter Location Admission Discharge Billing Code Consultant Elisabeth pedro Outpatient Priya Lugo Outpatient Gloria Zaman
== END 2024-09-29 22:49 | disposition home or self-care (01) ==
PROVIDERS: Emergency Provider Student in an Organized Health Care Education/Training Program; PCP Internal Medicine
DX: R07.89 Other chest pain (principal); K21.9 Gastro-esophageal reflux disease without esophagitis
CPT/HCPCS: 36415; 71046; 80048; 84484; 85025; 85379; 87631; 99284; A9270

== ENCOUNTER 2024-10-01 11:34 | Outpatient (CLI) | payer MEDICARE, BC, SELFPAY ==
--- NOTE | 2024-10-01 11:30 | CRLHL7_ITS ---
For Patients: As a result of the Century Cures Act, medical imaging exams and procedure reports are released immediately into your electronic medical record. You may view this report before your referring provider. If you have questions, please contact your health care provider. BILATERAL SCREENING MAMMOGRAM WITH COMPUTER-AIDED DETECTION AND TOMOSYNTHESIS TECHNIQUE: CC and MLO views were obtained. These mammographic images have been obtained using full-field digital technique. These mammographic images were interpreted with the benefit of computer-aided detection. Breast Tomosynthesis was used in this interpretation. COMPARISON FILM: 01/12/22, 11/04/19, 05/23/18. FINDINGS: The breasts are heterogeneously dense, which may obscure small masses. IMPRESSION: There is no radiographic evidence for malignancy. ASSESSMENT: BI-RADS Category 1: Negative RECOMMENDATION: Routine screening mammogram in 1 year. A lay language report of this examination will be provided to the patient. Gab Delaney M.D. Diagnostic/Nuclear Medicine Radiologist [email or web address]/aron SP/Dictated by: Gab Delaney MD @ 10/02/2024 10:30:00 AM (Electronically Signed)
== END 2024-10-01 11:35 | disposition home or self-care (01) ==
LOC: MAMMO 11:36
PROVIDERS: PCP Internal Medicine; Visit Provider Internal Medicine
DX: Z12.31 Encounter for screening mammogram for malignant neoplasm of breast (principal); R92.333 Mammographic heterogeneous density, bilateral breasts
CPT/HCPCS: 77063; 77067

== ENCOUNTER 2025-08-12 14:47 | Outpatient (CLI) | payer MEDICARE, BC, SELFPAY | END 2025-08-12 14:48 | disposition home or self-care (01) | LOC: NFLDREF 14:48 | PROVIDERS: PCP Internal Medicine; Visit Provider Internal Medicine | DX: I10 Essential (primary) hypertension (principal); E78.5 Hyperlipidemia, unspecified; E55.9 Vitamin D deficiency, unspecified; M81.0 Age-related osteoporosis without current pathological fracture | CPT/HCPCS: 80048; 80061; 82306; 84443 ==